=== PATIENT | male | born 1955 | race African-American/Black ===

== ENCOUNTER 2020-01-22 09:47 | Emergency (ER) | payer OTHER ==
[~2020-01-22] VITALS: Ht 180.3 cm; Wt 74.8 kg
[2020-01-22 10:00] VITALS: BP 150/59
--- NOTE | 2020-01-22 10:00 | NUR ---
Pt wheelchair assisted to bed 12
--- NOTE | 2020-01-22 10:04 | NUR ---
64 y/o male from home c/o lower extremity weakness x 2 days. Per pt he is able to ambulate with cane assistance and now cannot ambulate at all. Pt states he has more weakness to the lower lt leg. Able to feel sensation to bilateral lower extremities. Denies abd pain, but +vomiting. Awake and alert. RR even and unlabored. Skin warm, dry, and intact. Vss medhx: dm, throat cancer
--- NOTE | 2020-01-22 10:12 | NUR ---
Dr Adame at bedside examining pt
--- NOTE | 2020-01-22 10:35 | NUR ---
Pt to CT via [facility]
--- NOTE | 2020-01-22 11:02 | NUR ---
Pt returned from [facility] via [facility]
--- NOTE | 2020-01-22 11:52 | NUR ---
Pt resting in bed awake and alert. RR even and unlabored, denies pain. Will continue to monitor
[2020-01-22 13:47] VITALS: BP 144/61
--- NOTE | 2020-01-22 13:52 | NUR ---
DPatient discharged with v/s stable. Written and verbal after care instructions given and explained. Patient verbalized understanding. Ambulatory with steady gait. All questions addressed prior to discharge. Advised to follow up with PMD.
== END 2020-01-22 13:52 | disposition home or self-care (01) ==
LOC: MED 09:47
DX: R53.1 Weakness (principal); E11.9 Type 2 diabetes mellitus without complications; Z85.818 Personal history of malignant neoplasm of other sites of lip, oral cavity, and pharynx
CPT/HCPCS: 70450; 72170; 73630; 99284